=== PATIENT | female | born 1975 | race Two or more races ===

== ENCOUNTER 2022-09-04 13:37 | Outpatient (CLI) | payer OTHER | END 2022-09-04 23:59 | disposition home or self-care (01) | LOC: LAB 13:37 | PROVIDERS: ATTEND Specialist | DX: Z01.812 Encounter for preprocedural laboratory examination (principal); Z20.822 Contact with and (suspected) exposure to COVID-19 | CPT/HCPCS: U0003; C9803 ==

== ENCOUNTER 2022-09-10 05:12 | Day surgery (SDC) | payer OTHER ==
[~2022-09-10] VITALS: Ht 152.4 cm; Wt 88.9 kg
[2022-09-10 05:30] VITALS: BP 133/70
[2022-09-10] MEDS ORDERED: CLINDAMYCIN 900 MG/6 ML VIAL ONE (06:21)
[2022-09-10] MEDS ORDERED: BUPIVACAINE 0.5 % PF 150 MG/30 ML VIAL ONE (06:21)
[2022-09-10] MEDS ORDERED: FENTANYL PF 250MCG/5ML AMPUL ONE (06:25)
[2022-09-10] MEDS ORDERED: MIDAZOLAM HCL 2 MG/2ML VIAL ONE (06:25)
[2022-09-10] MEDS ORDERED: HYDROMORPHONE INJ 2 MG/ML DISP.SYRIN ONE (06:25)
[2022-09-10] MEDS ORDERED: FAMOTIDINE/PF INJ 20 MG/2 ML VIAL IV ONE (06:26)
[2022-09-10] MEDS ORDERED: ROCURONIUM BROMIDE 50 MG/5 ML ONE (06:26)
--- NOTE | 2022-09-10 06:47 | NUR ---
MS TAE INITIAL NOTES' RECEIVED DAY SURGERY PATIENT . SHE'S ALERT ORIENTED AMBULATORY . ABLE TO PROVIDE HER PERSONAL INFORMATION. CONSENT SIGNED AND VERIFIED. PT AWARE OF WHAT KIND OF SURGERY THAT SHE HAVE TODAY. ASSESSMENT DONE AND RECORDED. VITAL SIGNS FF BP 133/70, PULSE 70, RESP 18, TEMP 98.1 , O2 SAT 98%, HEPLOCK INSERTED ON HER RIGHT WRIST GAUGE 20 SECURED . PATIENT DRUG AND ALCOHOL COUNSELLOR BY OR TECH. NO SIGNS OF ANY DISCOMFORT OR ANY DISTRESS NOTED. WILL ENDORSE TO AM NURSE FOR CONTINUITY OF CARE.
[2022-09-10 07:30] VITALS: BP 103/68
--- NOTE | 2022-09-10 07:30 | NUR ---
MS RN OPENING NOTES - DAY SURGERY RECEIVED HANDOFF REPORT FROM TAE ANGEL. PATIENT IS CURRENTLY IN OR FOR RIGHT ANKLE ARTHROSCOPY CHONDROPLASTY, TALAR DOME REMOVAL OF LOOSE BODY EXTENSIVE DEBRIDEMENT BY DOUG ALFONSO. WILL ANTICIPATE POST OP NEEDS.
[2022-09-10 08:35] VITALS: BP 103/68
[2022-09-10 08:50] VITALS: BP 105/65
[2022-09-10 09:05] VITALS: BP 103/69
--- NOTE | 2022-09-10 09:17 | NUR ---
MS NAILS NOTES PATIENT WAS RECEIVED BACK IN HER ROOM AT 0835 ACCOMPANIED BY 2 OR NURSES VIA HER BED. PATIENT'S BOYFRIEND IS AT BEDSIDE. S/P RIGHT ANKLE ARTHROSCOPY BY DOUG ALFONSO. OPERATIVE SITE IS WRAPPED IN DRESSING C/D/I WITH NO NOTED BLEEDING. CIRCULATION IS GOOD. PATIENT IS SLEEPING BUT EASILY AROUSABLE, AOX4. VS TAKEN AND RECORDED, STABLE, AFEBRILE. PATIENT DENIES PAIN NOR DISCOMFORT AT THIS TIME. SAFETY MEASURES IN PLACE: BED IN LOWEST AND LOCKED POSITION, SIDE RAILS UP X2, CALL LIGHT AND TRAY TABLE WITHIN EASY REACH. WILL CONTINUE TO MONITOR. Addendum: 09/10/22 at 1107 by MAXIME SMITH RN IV ACCESS ON R WRIST G#22, INTACT PATENT, FLUSHING WELL, WITH NS RUNNING FROM RECOVERY ROOM AROUND 20 DROPS A MINUTE. WILL CONTINUE TO MONITOR.
[2022-09-10 09:20] VITALS: BP 105/60
--- NOTE | 2022-09-10 10:11 | NUR ---
RN NOTES - ALLERGY ON "ANIMAL PRODUCTS" REMOVED, PER PATIENT NO REACTION JUST DIETARY PREFERENCE.
[2022-09-10] MEDS ORDERED: CHOL100043 PO (10:23)
[2022-09-10] MEDS ORDERED: ESTR1PAT23 TD (10:23)
--- NOTE | 2022-09-10 12:04 | NUR ---
RN NOTES - VERIFIED WITH DR PRESTON'S OFFICE, SPOKE WITH DEB. HYDROCODONE 10/325 MG WAS ALREADY ORDERED ON 09/01 THRU [facility] ON [address] AND [facility]. WAS GIVEN # [phone] TO CONFIRM. RELAYED TO THE PT AND BOYFRIEND. DR PRESTON OK'D TO GIVE HYDROCODONE 10/325 MG FOR PAIN.
[2022-09-10] MEDS ORDERED: HYDROCODONE/APAP 10/325MG TABLET PO PRN (12:30)
--- NOTE | 2022-09-10 15:44 | NUR ---
MS DRY PLACER MACHINE OPERATOR NOTE - DAY SURGERY PATIENT IS DISCHARGED TO HOME IN STABLE CONDITION, AOX4, ON ROOM AIR BREATHING WITHOUT DIFFICULTY. S/P RIGHT ANKLE ARTHROSCOPY BY DR PRESTON, WRAPPED IN CLEAN BANDAGE WITHOUT ANY SIGNS OF BLEEDING. PAIN IS CONTROLLED AT THIS TIME. DISCHARGE INSTRUCTIONS AND FOLLOW UP VISIT DISCUSSED WITH PATIENT AND BOYFRIEND NURA. QUESTIONS ANSWERED. IV ON THE R WRIST G#22 REMOVED AND PRESSURE DRESSING APPLIED, NO BLEEDING NOTED. ALL BELONGINGS ACCOUNTED FOR, FORM SIGNED. PATIENT LEFT THE UNIT AT 1400 VIA WHEELCHAIR ACCOMPANIED BY ARLEEN HINTON TO THE LOBBY WITH NURA PT'S BOYFRIEND. MD AND CHARGE NURSE AWARE OF THE DC.
== END 2022-09-10 19:00 | disposition home or self-care (01) ==
LOC: DS 05:12 → UNDOADMIN 05:14 → MED 05:14 → UNDODISIN 14:26 → DS 19:00
PROVIDERS: ATTEND Specialist
DX: M89.8X7 Other specified disorders of bone, ankle and foot (principal); Z98.84 Bariatric surgery status; M65.871 Other synovitis and tenosynovitis, right ankle and foot
CPT/HCPCS: 29894; J3490 ×6; J2704; J1170; J2765; J2405; J7030; J2250; A6253; A4217; A6402; J3010; G0378

== ENCOUNTER 2022-09-23 17:46 | Inpatient (IN) | payer OTHER ==
[2022-09-22 22:27] VITALS: BP 174/73
[~2022-09-23] VITALS: Ht 152.4 cm; Wt 86.6 kg
[~2022-09-23 17:46] MED LIST: CHOL100043 PO; ESTR1PAT23 TD
--- NOTE | 2022-09-23 19:05 | NUR ---
RFA PAIN AND SWELLING FROM IV INSERTION SITE WHEN SHE HAD ANKLE SURGERY. PT A/OX4. TOLERATING R/A WELL WITH NO RESP DISTRESS.
--- NOTE | 2022-09-23 20:12 | NUR ---
MOVE SHEET SUBMITTED
[2022-09-23] MEDS ORDERED: ENOXAPARIN SODIUM 100 MG/ML DISP.SYRIN SQ ONE (20:20)
[2022-09-23] MEDS ORDERED: ENOXAPARIN SODIUM 80 MG/0.8 ML DISP.SYRIN SQ ONE (20:30)
--- NOTE | 2022-09-23 20:30 | NUR ---
COVID SWAB COLLECTED AND SENT TO LAB.
--- NOTE | 2022-09-23 20:31 | NUR ---
IV Elizabeth HAND #22G S/L; BLOOD COLLECTED AND SENT TO LAB
--- NOTE | 2022-09-23 20:44 | NUR ---
SCRAP BUNCH MAKER AT PT'S BEDSIDE
[2022-09-23 20:54] LABS: BASOPHILS # (AUTO) 0.1 K/uL (0.0-0.2); BASOPHILS % (AUTO) 0.7 % (0.0-2.0); EOSINOPHILS % (AUTO) 0.9 % (0.0-6.0); HEMATOCRIT 37 % (33-45); LYMPHOCYTES # (AUTO) 3.4 K/uL (0.8-4.8); LYMPHOCYTES % (AUTO) 40.7 % (20.0-44.0); MEAN CORPUSCULAR HGB CONC 32 g/dl (31.0-36.0); MEAN CORPUSCULAR VOLUME 77 fL (82-100); MONOCYTES # (AUTO) 0.6 K/uL (0.1-1.30); MONOCYTES % (AUTO) 6.7 % (2.0-12.0); NEUTROPHILS # (AUTO) 4.3 K/uL (1.8-8.9); PLATELET COUNT (AUTO) 406 K/uL (150-450); RED BLOOD CELL COUNT(AUTO) 4.85 MIL/uL (4.0-5.2); WHITE BLOOD COUNT (AUTO) 8.3 K/uL (4.3-11.0)
--- NOTE | 2022-09-23 21:16 | NUR ---
BED 314-2
--- NOTE | 2022-09-23 21:48 | NUR ---
DR HARVEY ON PHONE CALL WITH ORLIN NEVAREZ
--- NOTE | 2022-09-23 22:01 | NUR ---
REPORT GIVEN TO October RN FOR DILLON
--- NOTE | 2022-09-23 22:25 | NUR ---
PT TRANSFERRING TO [facility]-2 VIA ACLS PROTOCOL. VSS. ALL BELONGINGS WITH PT.
[2022-09-23 22:28] LABS: CARBON DIOXIDE 26 mmol/L (21-32); CHLORIDE 107 mmol/L (98-107); CREATININE 0.8 mg/dL (0.6-1.3); GLUCOSE 95 mg/dL (74-106); SODIUM SERUM 140 mmol/L (136-145); UREA NITROGEN, BLOOD 8 mg/dL (7-18)
[2022-09-23 22:40] VITALS: BP 147/73
--- NOTE | 2022-09-23 23:00 | NUR ---
TOP DISTRIBUTION EXECUTIVEMINING CAPTAIN NOTES - RECEIVED PATIENT FROM ED AT 2227 VIA GURNEY UNDER THE CARE OF ROBERTO ORDAZ WITH DX OF TIA. PATIENT IS A/O X4, S/P RIGHT ANKLE ARTHROPLASTY 2 WEEKS AGO. BREATHING IS EVEN AND NON-LABORED ON ROOM AIR. NOT IN ACUTE DISTRESS. VERBALIZED THAT HER RIGHT WRIST PAIN GOES UP TO 7/10 WHEN PRESSURE IS APPLIED, OTHERWISE, PAIN IS AT 3/10. SHE ALSO MENTIONED THAT SHE HAD LEFT-SIDED WEAKNESS IN THE MORNING BUT RESOLVED. VERBALIZED PRESSURE-LIKE MID CHEST PAIN THAT COMES AND GOES, NON-RADIATING AND ASSOCIATED WITH NAUSEA. NOT PRESENT AT THIS TIME. HAS LEFT HAND IV ACCESS #22G AND SALINE LOCKED. NO S/S OF INFILTRATION NOTED. VITAL SIGNS TAKEN AND PHYSICAL ASSESSMENT DONE. PATIENT IS AMBULATORY, INDEPENDENT WITH ADLS. ALL BELONGINGS ACCOUNTED FOR. ORIENTED PATIENT TO UNIT AND STAFF. SAFETY PRECAUTIONS IN PLACE: BED LOCKED AND IN LOW POSITION, SIDE RAILS UP X2, CALL LIGHT WITHIN REACH. WILL CONTINUE PLAN OF CARE.
[2022-09-24] VITALS: BP 144/73
[2022-09-24] MEDS ORDERED: ASPIRIN EC 325 MG TABLET.DR PO ONE (01:30)
[2022-09-24 04:00] VITALS: BP 138/60
[2022-09-24] MEDS ORDERED: BLOOD SUGAR DIAGNOSTIC 1 EACH STRIP IN SCH (06:00)
[2022-09-24 06:16] LABS: BASOPHILS % (AUTO) 0.6 % (0.0-2.0); EOSINOPHILS % (AUTO) 1.7 % (0.0-6.0); HEMATOCRIT 35 % (33-45); HEMOGLOBIN 11.5 g/dL (11.5-14.8); LYMPHOCYTES # (AUTO) 4.3 K/uL (0.8-4.8); LYMPHOCYTES % (AUTO) 56.8 % (20.0-44.0); MEAN CORPUSCULAR HGB CONC 33 g/dl (31.0-36.0); MEAN CORPUSCULAR VOLUME 76 fL (82-100); MONOCYTES # (AUTO) 0.6 K/uL (0.1-1.30); MONOCYTES % (AUTO) 7.3 % (2.0-12.0); NEUTROPHILS # (AUTO) 2.6 K/uL (1.8-8.9); NEUTROPHILS % (AUTO) 33.6 % (43.0-81.0); PLATELET COUNT (AUTO) 400 K/uL (150-450); RED BLOOD CELL COUNT(AUTO) 4.62 MIL/uL (4.0-5.2); WHITE BLOOD COUNT (AUTO) 7.6 K/uL (4.3-11.0)
[2022-09-24 06:27] LABS: THYROID STIMULATING HORMONE 4.959 uIU/mL (0.358-3.74)
[2022-09-24 06:32] LABS: CALCIUM, SERUM 9.2 mg/dL (8.5-10.1); CREATININE 0.7 mg/dL (0.6-1.3); POTASSIUM 3.7 mmol/L (3.5-5.1)
[2022-09-24] MEDS: BLOOD SUGAR DIAGNOSTIC 1 EACH STRIP IN SCH ×4 (06:32→22:10)
[2022-09-24 07:00] VITALS: BP 145/77
--- NOTE | 2022-09-24 07:00 | NUR ---
ASSOCIATE PROFESSOR OF GEOLOGY OPENING NOTES: RECEIVED PT IN BED AWAKE, ALERT AND ORIENTED X4 AND ABLE TO MAKE NEEDS KNOWN,NO SOB DENIES ANY PAIN AT THIS TIME. BREATHING NORMAL UNLABORED ON ROOM AIR AND TOLERATING WELL. ON TELE MONITOR WITH CURRENT READING SINUS RHYTHM 60BPM. IV ACCESS ON LEFT HAND GAUGE 22 PATENT, INTACT AND SALINE LOCKED. SAFETY MEASURES MAINTAINED: BED LOCKED AND IN LOWEST POSITION,SIDE RAILS UP X 2.
--- NOTE | 2022-09-24 07:10 | NUR ---
PRESS ASSISTANT CLOSING NOTES - PATIENT AWAKE, ABLE TO VERBALIZED NEEDS. SATURATING WELL ON ROOM AIR. NO SOB OR NOTED. DENIES PAIN AT THIS TIME. AFEBRILE. ON TELE MONITOR SHOWING SINUS BRADYCARDIA OR SINUS RHYTHM AT 58-67 BPM. LEFT HAND IV ACCESS INTACT, PATENT AND FLUSHING. NIHSS SCALE DONE, SCORE IS 0. ALL DUE MEDS GIVEN AND NEEDS ATTENDED. PATIENT EDUCATION PROVIDED ON DVT AND STROKE. SAFETY PRECAUTIONS MAINTAINED. WILL ENDORSE TO NEXT SHIFT FOR DILLON.
[2022-09-24] MEDS: PANTOPRAZOLE 40 MG TABLET.DR PO SCH (07:28)
[2022-09-24] MEDS: ASPIRIN 81 MG TAB.CHEW PO SCH (08:59)
[2022-09-24] MEDS: ENOXAPARIN SODIUM 80 MG/0.8 ML DISP.SYRIN SQ SCH ×2 (09:00→21:29)
[2022-09-24] MEDS ORDERED: ENOXAPARIN SODIUM 40 MG/0.4 ML DISP.SYRIN SQ SCH (09:00)
--- NOTE | 2022-09-24 09:24 | NUR ---
WOUND CARE CONSULT: PT PRESENTS WITH DRY BROWN LESIONS TO LEFT BUTTOCK, PRESENT ON ADMISSION.PT STATES THAT SHE HAS A SKIN CONDITION IN WHICH LESIONS COME AND GO. RT ANKLE CLOSED INCISIONS NOTED. WILL SEE PRN.
--- NOTE | 2022-09-24 11:00 | NUR ---
SW Consult: SW consult was requested for stroke. SW met with patient and patient appeared to be alert and oriented x3. Patient was cooperative and pleasant. Patient reported she was brought to the hospital due to her right wrist pain that has been progressing over the past 2 days. The patient reports she had a right ankle arthroplasty 13 days ago and 2 days started developing swelling and pain to the intravenous insertion site. She stated that she was experiencing numbness in her face and had lost her balance. Pt has a significant other and has one children. 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 Pt currently resides at [address] [place] [address]. Pt wants to return back home when stable. Pt denied suicidal or homicidal ideation. Denied visual/auditory hallucinations. She stated that she is just anxious due to her current situation. RAMON will conduct stroke assessment. DC PLAN: Pt currently resides at [address] [place] [address]. Pt wants to return back home when stable.
--- NOTE | 2022-09-24 11:05 | NUR ---
RN NOTES: PT REQUESTED FOR CT CHEST DUE TO PREVIOUS CHEST PAIN, INFORMED DR MOOER AND ORDERED EKG STAT, TROP Q6HRS X3, CTA CHEST TO RULE OUT PE. ORDERS NOTED AND CARRIED OUT.
--- NOTE | 2022-09-24 11:08 | NUR ---
Social Work Note/PH9 Post Stroke Depression Screening: distillery worker general met with patient and conducted a PHQ-9 (Post Stroke Depression Screening) in which the patient score of a level of 3 for depression. Patient does not require a psychiatric consult at this time.
--- NOTE | 2022-09-24 11:08 | NUR ---
Social Work Stroke Resources: lot worker met with patient and provided stroke referrals such as: Stroke Family Warmline at (4-529-8-STROKE) and additional information on caring for a stroke survivor ( ). lot worker also educated patient on the signs of Stroke and to immediately call 911. lot worker provided education on the signs of stroke and provided educational packet with information: Dietary food, what stroke is, risks, emotional support, finding support, medical management, and effects of stroke.
[2022-09-24] MEDS ORDERED: IOHEXOL-350 100 ML VIAL IV ONE (12:03)
[2022-09-24] MEDS ORDERED: IV NS 0.9% 250 ML IV ONE (12:03)
[2022-09-24 16:00] VITALS: BP 143/62
--- NOTE | 2022-09-24 19:10 | NUR ---
MS/ICER HAND CLOSING NOTES: PT AWAKE IN BED, ALERT AND ORIENTED X4. ABLE TO MAKE NEEDS KNOWN, NO SOB, DENIES ANY PAIN AT THIS TIME. AFEBRILE. NON LABORED BREATHING ON ROOM AIR AND TOLERATING WELL. NO CHEST PAIN OR ANY DISCOMFORT, SPEECH CHANGES NOTED DURING AM SHIFT.ON TELE MONITOR WITH CURRENT READING SINUS RHYTHM OF 96BPM. IV ACCESS ON LEFT HAND GAUGE 22, PATENT, INTACT AND SALINE LOCKED. ALL DUE MEDS/TREATMENT GIVEN, NEEDS ATTENDED.SAFETY MEASURES MAINTAINED: BED LOCKED AND IN LOWEST POSITION,SIDE RAILS UP X 2. WILL ENDORSE TO PM SHIFT FOR CONTINUITY OF CARE.
--- NOTE | 2022-09-24 19:40 | NUR ---
SENIOR PLANNING ANALYST OPENING NOTES RECEIVED PATIENT IN BED AWAKE, ALERT AND ORIENTED. A/0 X 4. ABLE TO MAKE NEEDS KNOWN. ON ROOM AIR, BREATHING EVEN AND UNLABORED, NO DISTRESS OR SOB NOTED AT THIS TIME. DENIES ANY PAIN AT THIS TIME. AFEBRILE. ON TELE MONITOR WITH CURRENT READING SINUS RHYTHM, NO CHEST PAIN OR ANY DISCOMFORT. IV ACCESS ON LEFT HAND GAUGE 22 AND LAC #20G PATENT, INTACT AND SALINE LOCKED. SAFETY MEASURES IN PLACE WITH BED IN LOWEST LOCKED POSITION. SIDE RAILS UP X 2. CALL LIGHT AND TRAY WITHIN EASY REACH. WILL CONTINUE TO MONITOR THE PATIENT.
[2022-09-24 20:16] VITALS: BP 148/72
[2022-09-24] MEDS: SIMVASTATIN 20 MG TABLET PO SCH (21:28)
--- NOTE | 2022-09-24 21:30 | NUR ---
RN NOTES SIMVASTATIN GIVEN TO THE PATIENT PO. NO PROBLEM SWALLOWING THE MEDICATION AND DRINKING WATER. NO DISTRESS NOTED. WILL CONTINUE TO MONITOR THE PATIENT.
[2022-09-25 00:34] VITALS: BP 128/102
[2022-09-25 04:21] VITALS: BP 159/88
[2022-09-25] MEDS: BLOOD SUGAR DIAGNOSTIC 1 EACH STRIP IN SCH ×4 (06:56→22:00)
[2022-09-25 07:00] VITALS: BP 138/84
--- NOTE | 2022-09-25 07:12 | NUR ---
CHIP PERSON CLOSING NOTES PATIENT IN BED AWAKE, ALERT AND ORIENTED. A/0 X 4. ABLE TO MAKE NEEDS KNOWN. ON ROOM AIR, BREATHING EVEN AND UNLABORED, NO DISTRESS OR SOB NOTED AT THIS TIME. DENIES ANY PAIN AT THIS TIME. AFEBRILE. ON TELE MONITOR WITH CURRENT READING SINUS RHYTHM, NO CHEST PAIN OR ANY DISCOMFORT. IV ACCESS ON LEFT HAND GAUGE 22 AND LAC #20G PATENT, INTACT AND SALINE LOCKED. ALL NEEDS ATTENDED. EDUCATE THE PATIENT ABOUT STROKE PREVENTION. SAFETY MEASURES MAINTAINED. WILL ENDORSE TO THE NEXT SHIFT.
[2022-09-25 07:15] LABS: BASOPHILS # (AUTO) 0.1 K/uL (0.0-0.2); BASOPHILS % (AUTO) 1.1 % (0.0-2.0); EOSINOPHILS % (AUTO) 0.8 % (0.0-6.0); HEMATOCRIT 37 % (33-45); LYMPHOCYTES # (AUTO) 2.1 K/uL (0.8-4.8); LYMPHOCYTES % (AUTO) 38.1 % (20.0-44.0); MEAN CORPUSCULAR HGB CONC 32 g/dl (31.0-36.0); MEAN CORPUSCULAR VOLUME 77 fL (82-100); MONOCYTES # (AUTO) 0.3 K/uL (0.1-1.30); MONOCYTES % (AUTO) 5.8 % (2.0-12.0); NEUTROPHILS # (AUTO) 2.9 K/uL (1.8-8.9); NEUTROPHILS % (AUTO) 54.2 % (43.0-81.0); PLATELET COUNT (AUTO) 406 K/uL (150-450); RED BLOOD CELL COUNT(AUTO) 4.81 MIL/uL (4.0-5.2); WHITE BLOOD COUNT (AUTO) 5.4 K/uL (4.3-11.0)
--- NOTE | 2022-09-25 07:25 | NUR ---
WIG STYLIST OPENING NOTES RECEIVED PATIENT IN BED AWAKE, ALERT AND ORIENTED X 4. ABLE TO MAKE NEEDS KNOWN. ON ROOM AIR, WITH EQUAL AND UNLABORED BREATHING, NO SIGNS OF DISTRESS OR SOB NOTED. DENIES ANY PAIN OR DISCOMFORT AT THIS TIME. PATIENT IS AFEBRILE. ON TELE MONITOR WITH READING SINUS TACHYCARDIA 110. WITH IV ACCESS ON LEFT HAND GAUGE 22 AND LEFT AC #20G ON SALINE LOCK, PATENT AND INTACT. DENIES PAIN, NAUSEA AND VOMITING, WEAKNESS, MOTOR OR SENSORY DEFICIT. ABLE TO DRINK WATER WITHOUT DIFFICULTY. SAFETY MEASURES ENSURED WITH BED ON LOWEST LOCKED POSITION. SIDERAILS UP AND CALL LIGHT WITHIN REACH AT ALL TIMES. WILL CONTINUE WITH PLAN OF CARE.
[2022-09-25 07:31] LABS: CALCIUM, SERUM 8.7 mg/dL (8.5-10.1); CREATININE 0.8 mg/dL (0.6-1.3); MAGNESIUM 2.2 mg/dL (1.8-2.4); PHOSPHORUS 3.8 mg/dL (2.5-4.9); POTASSIUM 3.6 mmol/L (3.5-5.1)
[2022-09-25] MEDS: PANTOPRAZOLE 40 MG TABLET.DR PO SCH (08:07)
[2022-09-25] MEDS: CHOLECALCIFEROL 1,000 UNIT TABLET (VIT D3) PO SCH (08:22)
[2022-09-25] MEDS: ASPIRIN 81 MG TAB.CHEW PO SCH (08:22)
[2022-09-25] MEDS: ENOXAPARIN SODIUM 80 MG/0.8 ML DISP.SYRIN SQ SCH ×2 (08:24→22:22)
--- NOTE | 2022-09-25 08:50 | NUR ---
DISC INSPECTOR NOTE DUE MEDICATION GIVEN AND HEALTH TEACHING DONE REGARDING MEDICATIONS AND INDICATION OF MEDICATIONS. VERBALIZED UNDERSTANDING AND APPRECIATION.
--- NOTE | 2022-09-25 10:12 | NUR ---
SALESPERSON HANDBAGS NOTE PATIENT SEEN NIHSS DONE. LATEST SCORE IS 0.
[2022-09-25 12:00] VITALS: BP 158/83
[2022-09-25 16:00] VITALS: BP 153/87
[2022-09-25] MEDS: ACETAMINOPHEN 325 MG TABLET PO PRN (16:06)
--- NOTE | 2022-09-25 16:10 | NUR ---
MS RN NOTE PATIENT COMPLAINS OF HEADACHE 2-07/10. ASKED FOR PAIN MEDICATION. HOSPITALIST TERESA NOTIFIED WITH ORDERS MADE AND CARRIED OUT.
--- NOTE | 2022-09-25 18:42 | NUR ---
GOVERNMENT OPERATIONS CONSULTANT CLOSING NOTE PATIENT IN BED AWAKE, ALERT AND ORIENTED X 4. ABLE TO MAKE NEEDS KNOWN. ON ROOM AIR, WITH EQUAL AND UNLABORED BREATHING, NO SIGNS OF DISTRESS OR SOB NOTED. DENIES ANY PAIN OR DISCOMFORT AT THIS TIME. PATIENT IS AFEBRILE. ON TELE MONITOR WITH READING SINUS TACHYCARDIA 112. WITH IV ACCESS ON LEFT HAND GAUGE 22 AND LEFT AC #20G ON SALINE LOCK, PATENT AND INTACT. DENIES PAIN, NAUSEA AND VOMITING, WEAKNESS, MOTOR OR SENSORY DEFICIT. ABLE TO DRINK WATER WITHOUT DIFFICULTY. SAFETY MEASURES ENSURED WITH BED ON LOWEST LOCKED POSITION. SIDERAILS UP AND CALL LIGHT WITHIN REACH AT ALL TIMES. WILL ENDORSE TO NEXT SHIFT FOR CONTINUITY OF CARE.
--- NOTE | 2022-09-25 19:50 | NUR ---
PERIPHERAL EQUIPMENT OPERATOR OPENING NOTES RECEIVED PATIENT IN BED AWAKE, ALERT AND ORIENTED. A/0 X 4. ABLE TO MAKE NEEDS KNOWN. ON ROOM AIR, BREATHING EVEN AND UNLABORED, NO DISTRESS OR SOB NOTED AT THIS TIME. DENIES ANY PAIN AT THIS TIME. ON TELE MONITOR WITH CURRENT READING SINUS TACHY, NO CHEST PAIN OR ANY DISCOMFORT. IV ACCESS ON LEFT HAND GAUGE 22 AND LAC #20G PATENT, INTACT AND SALINE LOCKED. SAFETY MEASURES IN PLACE WITH BED IN LOWEST LOCKED POSITION. SIDE RAILS UP X 2. CALL LIGHT AND TRAY WITHIN EASY REACH. WILL CONTINUE WITH THE PLAN OF CARE.
[2022-09-25] MEDS: SIMVASTATIN 20 MG TABLET PO SCH (21:59)
[2022-09-26] VITALS: BP 128/68
[2022-09-26 05:08] LABS: *CARD ANTI-CARDIOLIPIN AB IgG <9 GPL U/mL (0-14); *CARD ANTI-CARDIOLIPIN AB IgM <9 MPL U/mL (0-12)
--- NOTE | 2022-09-26 07:40 | NUR ---
SOFA COVER INSPECTOR CLOSING NOTES PATIENT IN BED AWAKE, ALERT AND ORIENTED. A/0 X 4. ABLE TO MAKE NEEDS KNOWN. ON ROOM AIR, BREATHING EVEN AND UNLABORED, NO DISTRESS OR SOB NOTED AT THIS TIME. DENIES ANY PAIN AT THIS TIME. ON TELE MONITOR WITH CURRENT READING SINUS MASSIMO @ 53, NO CHEST PAIN OR ANY DISCOMFORT. IV ACCESS ON LEFT HAND GAUGE 22 AND LAC #20G PATENT, INTACT AND SALINE LOCKED. ALL NEEDS ATTENDED. SAFETY MEASURES MAINTAINED DURING SHIFT. WILL ENDIRSE TO THE NEXT SHIFT.
--- NOTE | 2022-09-26 08:04 | NUR ---
RN OPENING NOTE RECEIVED PATIENT IN BED AO x 4, ABLE TO RESPONDS PHYSICAL STIMULI. RESPIRATORY EVEN AND UNLABORED IN ROOM AIR. IN NO ACUTE RESPIRATORY DISTRESS OBSERVED. SKIN IS WARM TO TOUCH, KEEP CLEAN/DRY. KEPT ELEVATED HOB FOR ASPIRATION PRECAUTION/ENSURE AIRWAY, ALSO LOWEST BED POSITIONED. BED ALARM IS ON AT ALL TIMES FOR SAFETY. CALL LIGHT WITHIN REACH, WILL CONTINUE TO MONITOR.
[2022-09-26] MEDS: ASPIRIN 81 MG TAB.CHEW PO SCH (08:28)
[2022-09-26] MEDS: PANTOPRAZOLE 40 MG TABLET.DR PO SCH (08:29)
[2022-09-26] MEDS: CHOLECALCIFEROL 1,000 UNIT TABLET (VIT D3) PO SCH (08:29)
[2022-09-26] MEDS: ENOXAPARIN SODIUM 80 MG/0.8 ML DISP.SYRIN SQ SCH (08:30)
[2022-09-26] MEDS: BLOOD SUGAR DIAGNOSTIC 1 EACH STRIP IN SCH ×2 (08:36→11:54)
[2022-09-26 08:47] VITALS: BP 136/74
[2022-09-26] MEDS ORDERED: APIX5TAB PO (10:55)
[2022-09-26] MEDS ORDERED: ASPI-1169 PO (10:55)
[2022-09-26] MEDS ORDERED: SIMV-46 PO (10:55)
[2022-09-26] MEDS: ACETAMINOPHEN 325 MG TABLET PO PRN (11:47)
[2022-09-26 12:01] VITALS: BP 129/80
--- NOTE | 2022-09-26 13:05 | NUR ---
PATIENT DISCHARGE TO THE HOME. GIVEN DISCHARGE INSTRUCTION INCLUDE NEW MEDICATIONS, DOSAGE, FREQUENCY, AND SIDE EFFECTS. PATIENT IN STABLE CONDITION, IN NO ACUTE DISTRESS OBSERVED. PATIENT REFUSED WITH WHEELCHAIR. REMOVED IV LINE BEFORE PATIENT LEAVE, AND WOUND PICTURE TAKEN ON RIGHT ANKLE.
[2022-09-26 22:06] LABS: *ANTITHROMBIN III AG 93 % (72-124); *DILUTE PROTHROMBIN TIME (dPT) 31.8 sec (0.0-47.6); *THROMBIN TIME 19.2 sec (0.0-23.0); *dPT CONFIRM RATIO 0.77 Ratio (0.00-1.34); *dRVVT 31.7 sec (0.0-47.0)
[2022-09-30 17:07] LABS: *FACTOR II, DNA ANALYSIS Negative (.)
== END 2022-09-26 13:05 | disposition home or self-care (01) | DRG 300 ==
LOC: ER 17:48 → TELE 21:41
PROVIDERS: ADMIT Nurse Practitioner Acute Care; ATTEND Nurse Practitioner Acute Care
DX: I82.621 Acute embolism and thrombosis of deep veins of right upper extremity (principal); G45.9 Transient cerebral ischemic attack, unspecified; Z68.37 Body mass index [BMI] 37.0-37.9, adult; E66.9 Obesity, unspecified; R29.700 NIHSS score 0; Z20.822 Contact with and (suspected) exposure to COVID-19; Z98.84 Bariatric surgery status; Z90.710 Acquired absence of both cervix and uterus; Z98.890 Other specified postprocedural states; R29.810 Facial weakness; Z96.651 Presence of right artificial knee joint; Z88.1 Allergy status to other antibiotic agents; Z79.818 Long term (current) use of other agents affecting estrogen receptors and estrogen levels
CPT/HCPCS: 36415; 70450-TC; 70496-TC; 70498-TC; 70551-TC; 71045-TC; 80048-TC; 80061-TC; 81240; 81241; 82607-TC; 82962-TC; 83090; 83735-TC; 84100-TC; 84443-TC; 84484-TC; 85025-TC; 85300; 85301; 85303; 85613; 85670; 85705; 85730-TC; 85732; 86147; 93307-TC; 93971-TC; 97110-TC; 97112-TC; 97116-TC; 97530-TC; 97535-TC; C9803; G0378; J1650; J7050; Q9967